=== PATIENT | male | born 1980 | race African-American/Black ===

== ENCOUNTER 2021-12-30 19:16 | Emergency (ER) | payer OTHER ==
[~2021-12-30] VITALS: Ht 165.1 cm; Wt 61.0 kg
[2021-12-30 19:35] VITALS: BP 137/99
== END 2021-12-30 21:08 | disposition home or self-care (01) ==
LOC: ER 19:16
DX: R05.9 Cough, unspecified (principal); T18.9XXA Foreign body of alimentary tract, part unspecified, initial encounter; X58.XXXA Exposure to other specified factors, initial encounter
CPT/HCPCS: 71045; 74018; 99284

== ENCOUNTER 2022-03-15 12:43 | Emergency (ER) | payer OTHER ==
[~2022-03-15] VITALS: Ht 165.1 cm; Wt 61.0 kg
[2022-03-15 13:24] VITALS: BP 116/82
[2022-03-15] MEDS ORDERED: CEPHALEXIN 250MG CAPSULE PO ONE (13:45)
[2022-03-15] MEDS ORDERED: ACETAMINOPHEN 500MG TABLET PO ONE (13:45)
[2022-03-15] MEDS ORDERED: TETANUS, DIPHTHERIA, PERTUSSIS VAC/PF 0.5ML (>10YR OLD) IM ONE ×2 (13:45→15:30)
[2022-03-15] MEDS ORDERED: CEPH500C2 MT (14:53)
[2022-03-15] MEDS ORDERED: ACET-2708 MT (14:53)
[2022-03-15] MEDS ORDERED: CEPHALEXIN 250MG CAPSULE PO NR (15:30)
[2022-03-15] MEDS ORDERED: ACETAMINOPHEN 500MG TABLET PO NR (16:00)
== END 2022-03-15 15:34 | disposition left against medical advice (07) ==
LOC: ER 13:00
DX: S90.01XA Contusion of right ankle, initial encounter (principal); L03.115 Cellulitis of right lower limb; W22.8XXA Striking against or struck by other objects, initial encounter; Y93.89 Activity, other specified; Y92.89 Other specified places as the place of occurrence of the external cause; Y99.8 Other external cause status
CPT/HCPCS: 73610; 90471; 90715; 99283